=== PATIENT | female | born 1955 | race Native Hawaiian/Other Pacific Islander ===

== ENCOUNTER 2017-09-10 13:00 | Outpatient (CLI) | payer BC | END 2017-09-10 19:48 | disposition home or self-care (01) | LOC: MAMMO 13:00 | DX: Z12.31 Encounter for screening mammogram for malignant neoplasm of breast (principal) ==

== ENCOUNTER 2020-03-05 09:33 | Outpatient (CLI) | payer BC | END 2020-03-05 21:31 | disposition home or self-care (01) | LOC: MAMMO 09:33 | PROVIDERS: ATTEND Internal Medicine | DX: Z12.31 Encounter for screening mammogram for malignant neoplasm of breast (principal) ==

== ENCOUNTER 2021-04-20 12:13 | Emergency (ER) | payer BC ==
[~2021-04-20] VITALS: Ht 154.9 cm; Wt 83.9 kg
[2021-04-20 12:40] LABS: PLATELET COUNT 363 K/uL (152-353)
[2021-04-20 13:01] LABS: POTASSIUM 4.6 mmol/L (3.6-5.2)
[2021-04-20 16:00] VITALS: BP 116/46; TEMP 98.6
== END 2021-04-20 17:45 | disposition short-term general hospital (02) ==
LOC: ED 12:13
PROVIDERS: Emergency Medicine
DX: N17.8 Other acute kidney failure (principal); N39.0 Urinary tract infection, site not specified; Z11.52 Encounter for screening for COVID-19
CPT/HCPCS: 80053; 81000; 82948; 84484; 85027; 87077; 87086; 87088; 87186; 87635; 93005; 96360; 96365; 96366; 96375; 99284; J1956; J2405; J2550; J7060; U0003

== ENCOUNTER 2021-05-27 13:26 | Outpatient (CLI) | payer OTHER | END 2021-05-27 18:55 | disposition home or self-care (01) | LOC: MAMMO 13:26 | PROVIDERS: ATTEND Nurse Practitioner Family | DX: Z12.31 Encounter for screening mammogram for malignant neoplasm of breast (principal) ==

== ENCOUNTER 2021-07-10 15:02 | Outpatient (CLI) | payer OTHER ==
[2021-07-10 15:23] LABS: PLATELET COUNT 255 K/uL (152-353)
[2021-07-10 15:57] LABS: POTASSIUM 4.5 mmol/L (3.6-5.2)
== END 2021-07-10 19:00 | disposition home or self-care (01) ==
LOC: LABW 15:02
PROVIDERS: ATTEND Internal Medicine Nephrology
DX: E11.9 Type 2 diabetes mellitus without complications (principal); E78.49 Other hyperlipidemia; N17.9 Acute kidney failure, unspecified; N18.6 End stage renal disease; M06.8A Other specified rheumatoid arthritis, other specified site; R01.1 Cardiac murmur, unspecified; I12.0 Hypertensive chronic kidney disease with stage 5 chronic kidney disease or end stage renal disease
CPT/HCPCS: 36415; 80053; 85027

== ENCOUNTER 2021-09-29 13:54 | Outpatient (CLI) | payer OTHER ==
[2021-09-29 14:16] LABS: POTASSIUM 5.4 mmol/L (3.6-5.2)
== END 2021-09-29 18:56 | disposition home or self-care (01) ==
LOC: LABW 13:54
PROVIDERS: ATTEND Internal Medicine
DX: E87.5 Hyperkalemia (principal)
CPT/HCPCS: 36415; 80053

== ENCOUNTER 2022-03-13 14:01 | Observation (INO) | payer OTHER ==
[2022-03-13] VITALS (8 sets, daily range): BP systolic 100–162; BP diastolic 44–86; TEMP 98.3–101.5
[~2022-03-13] VITALS: Ht 154.9 cm; Wt 88.1 kg
[2022-03-13 14:43] LABS: PLATELET COUNT 238 K/uL (152-353)
[2022-03-13 14:55] LABS: POTASSIUM 4.2 mmol/L (3.6-5.2)
[2022-03-14] VITALS (9 sets, daily range): BP systolic 103–129; BP diastolic 48–59; TEMP 97.8–100.4; Ht 154.9 cm; Wt 88.1 kg
[2022-03-14 04:59] LABS: PLATELET COUNT 193 K/uL (152-353)
[2022-03-14 05:35] LABS: POTASSIUM 3.8 mmol/L (3.6-5.2)
[2022-03-14] MEDS ORDERED: PREDNISONE1 MG PO (13:14)
[2022-03-14] MEDS ORDERED: PANTOPRAZOLE 40MG TA PO (14:03)
[2022-03-14] MEDS ORDERED: ASPIRIN 8181 MG PO (14:04)
[2022-03-14] MEDS ORDERED: KP FOLIC ACID1 MG PO (14:04)
[2022-03-14] MEDS ORDERED: BENAZEPRIL HYDR1 TA1 PO (14:05)
[2022-03-14] MEDS ORDERED: HUMALOG KW100 UNIT/M SC (14:05)
[2022-03-14] MEDS ORDERED: PRAVASTATIN PO (14:06)
[2022-03-14] MEDS ORDERED: GABA300C2 PO (14:06)
[2022-03-14] MEDS ORDERED: TRESIBA FL200 UNIT/M SC (14:07)
[2022-03-15 03:31] VITALS: BP 132/68; TEMP 99
[2022-03-15 08:00] VITALS: BP 115/47; TEMP 98.5
[2022-03-15 12:00] VITALS: BP 122/59; TEMP 98.4
[2022-03-15 13:03] LABS: POTASSIUM 3.6 mmol/L (3.6-5.2)
[2022-03-15 14:11] LABS: PLATELET COUNT 166 K/uL (152-353)
[2022-03-15] MEDS ORDERED: LEVOFLOXACIN500 MG PO (14:50)
[2022-03-15] MEDS ORDERED: FLUC150T PO (14:52)
[2022-03-15 16:00] VITALS: BP 126/64; TEMP 98.5
== END 2022-03-15 16:30 | disposition home or self-care (01) ==
LOC: ED 14:01 → MED/SURG 16:50
PROVIDERS: Family Medicine; ADMIT Internal Medicine; ATTEND Internal Medicine
DX: A41.89 Other specified sepsis (principal); N39.0 Urinary tract infection, site not specified; K21.9 Gastro-esophageal reflux disease without esophagitis; M06.8A Other specified rheumatoid arthritis, other specified site; M25.511 Pain in right shoulder; R53.1 Weakness; D53.9 Nutritional anemia, unspecified; B96.29 Other Escherichia coli [E. coli] as the cause of diseases classified elsewhere; I12.9 Hypertensive chronic kidney disease with stage 1 through stage 4 chronic kidney disease, or unspecified chronic kidney disease; E11.22 Type 2 diabetes mellitus with diabetic chronic kidney disease; N18.4 Chronic kidney disease, stage 4 (severe); E11.42 Type 2 diabetes mellitus with diabetic polyneuropathy
CPT/HCPCS: 36415; 80048; 80053; 81000; 82550; 82948; 83605; 85027; 87040; 87077; 87086; 87088; 87186; 87635; 93005; 96360; 96361; 96365; 96367; 96372; 96375; 99220; 99283; G0378; J0132; J0696; J1335; J1650; J1956; J2405; J2550; U0003

== ENCOUNTER 2022-09-14 10:21 | Outpatient (CLI) | payer OTHER ==
[~2022-09-14 10:21] MED LIST: ASPIRIN 8181 MG PO; BENAZEPRIL HYDR1 TA1 PO; FLUC150T PO; GABA300C2 PO; HUMALOG KW100 UNIT/M SC; KP FOLIC ACID1 MG PO; LEVOFLOXACIN500 MG PO; PANTOPRAZOLE 40MG TA PO; PRAVASTATIN PO; PREDNISONE1 MG PO; TRESIBA FL200 UNIT/M SC
== END 2022-09-14 19:10 | disposition home or self-care (01) ==
LOC: MAMMO 10:21
PROVIDERS: ATTEND Internal Medicine
DX: Z12.31 Encounter for screening mammogram for malignant neoplasm of breast (principal)

== ENCOUNTER 2022-11-17 11:40 | Outpatient (CLI) | payer OTHER ==
[2022-11-17 12:19] LABS: PLATELET COUNT 271 K/uL (152-353)
[2022-11-17 13:48] LABS: POTASSIUM 4.3 mmol/L (3.6-5.2)
== END 2022-11-17 18:55 | disposition home or self-care (01) ==
LOC: LABW 11:40
PROVIDERS: ATTEND Internal Medicine Nephrology
DX: E11.9 Type 2 diabetes mellitus without complications (principal); E78.49 Other hyperlipidemia; N17.8 Other acute kidney failure; N18.6 End stage renal disease; M06.9 Rheumatoid arthritis, unspecified; M19.019 Primary osteoarthritis, unspecified shoulder; R01.1 Cardiac murmur, unspecified
CPT/HCPCS: 36415; 80053; 81000; 82306; 82570; 83970; 84100; 84156; 85027; 87086; 87088